=== PATIENT | female | born 1945 | race Caucasian/White ===

== ENCOUNTER 2023-08-04 14:30 | Inpatient (IN) | payer OTHER ==
[~2023-08-04] VITALS: Ht 154.9 cm; Wt 54.4 kg
[2023-08-04 14:44] VITALS: BP_SYST 156; PULSE 87; RESP 18; TEMP 99.5; O2SAT 98
[2023-08-04] MEDS ORDERED: METOCLOPRAMIDE HCL 10 MG/2 ML VIAL IVP ONE (15:00)
[2023-08-04] MEDS ORDERED: MECLIZINE HCL 25 MG TABLET (ANITVERT) PO ONE (15:00)
[2023-08-04 15:46] LABS: HEMATOCRIT 35.5 % (36-48); HEMOGLOBIN 11.7 g/dL (12.0-16.0); MEAN CORPUSCULAR HEMOGLOBIN 33 pg (27-31); MEAN CORPUSCULAR HGB CONC 33 % (32-36); MEAN CORPUSCULAR VOLUME 99 fL (79.0-98.0); PLATELET COUNT (AUTO) 167 K/uL (130-430); RED BLOOD CELL COUNT(AUTO) 3.57 MIL/uL (4.2-6.2)
[2023-08-04 15:55] LABS: PROTHROMBIN TIME 10.4 SECS (9.5-12.5)
[2023-08-04 16:08] LABS: ALANINE AMINOTRANSFERASE 15 U/L (12-78); ALBUMIN 3.1 g/dL (3.4-4.8); ANION GAP 8 (5-15); ASPARTATE AMINOTRANSFERASE 12 U/L (10-37); CALCIUM 7.9 mg/dL (8.4-11.0); CARBON DIOXIDE 31 mmol/L (23-29); CHLORIDE 103 mmol/L (98-107); CREATINE KINASE, TOTAL 46 U/L (26-192); CREATININE 0.65 mg/dL (0.55-1.30); GLUCOSE 121 mg/dL (74-106); SODIUM SERUM 142 mmol/L (136-145); THYROID STIMULATING HORMONE 2.24 uIu/mL (0.34-4.82); TOTAL BILIRUBIN 0.9 mg/dL (0.0-1.0); TOTAL PROTEIN, SERUM 5.8 g/dL (6.4-8.3); UREA NITROGEN, BLOOD 12 mg/dL (8-21)
[2023-08-04 16:12] LABS: POTASSIUM 2.8 mmol/L (3.5-5.1)
[2023-08-04 16:18] LABS: WHITE BLOOD COUNT (AUTO) 72.9 K/uL (4.8-10.8)
[2023-08-04 16:19] LABS: ACETONE, SERUM NEGATIVE (NEGATIVE)
[2023-08-04] MEDS ORDERED: cefTRIAXone 1 GM in D5W 50 ML IV ONE (16:30)
[2023-08-04] MEDS ORDERED: NACL 0.9% 1,000 ML IV ONE (16:30)
[2023-08-04] MEDS ORDERED: POTASSIUM CHLORIDE 20 MEQ/PKT PACKET PO ONE (16:45)
[2023-08-04 17:20] LABS: BAND % (MANUAL) 0 % (0-6); BASOPHILS % (MANUAL) 0 % (0-2); EOSINOPHILS % (MANUAL) 0 % (0-7); LYMPHOCYTES % (MANUAL) 86 % (20-46); MONOCYTES % (MANUAL) 0 % (0-11)
[2023-08-04 17:23] LABS: PLATELET ESTIMATE ADEQUATE (ADEQUATE)
[2023-08-04 17:25] LABS: OVALOCYTES FEW
[2023-08-04] MEDS ORDERED: cefTRIAXone 1 GM VIAL ONE (17:32)
[2023-08-04 21:59] VITALS: BP_SYST 124; PULSE 87; RESP 16; TEMP 97.9
[2023-08-04] MEDS ORDERED: ACETAMINOPHEN 325 MG TABLET PO PRN (23:15)
[2023-08-04] MEDS ORDERED: ONDANSETRON HCL 4 MG/2 ML VIAL IVP PRN (23:15)
[2023-08-04] MEDS ORDERED: HYDROcodone/ACETAMIN 10-325 MG TAB PO PRN (23:15)
[2023-08-04] MEDS ORDERED: HYDROcodone/ACETAMIN 5-325 MG TAB (NORCO/ VICODIN) PO PRN (23:15)
[2023-08-04] MEDS ORDERED: LORazepam 2 MG/ML VIAL IVP PRN (23:15)
[2023-08-04] MEDS ORDERED: NALOXONE HCL 0.4 MG/ML AMP (NARCAN) IVP PRN ×2 (23:15)
[2023-08-04 23:57] VITALS: O2SAT 98
[2023-08-05 00:38] VITALS: BP_SYST 147; PULSE 84; RESP 18; TEMP 99.1; O2SAT 98
[2023-08-05 04:57] LABS: HEMATOCRIT 30.7 % (36-48); HEMOGLOBIN 10.1 g/dL (12.0-16.0); LYMPHOCYTES # (AUTO) 58.5 K/uL (1.0-5.5); LYMPHOCYTES % (AUTO) 91.9 % (20.5-51.5); MEAN CORPUSCULAR HEMOGLOBIN 33 pg (27-31); MEAN CORPUSCULAR HGB CONC 33 % (32-36); MEAN CORPUSCULAR VOLUME 99 fL (79.0-98.0); MONOCYTES # (AUTO) 0.5 K/uL (0.0-1.0); MONOCYTES % (AUTO) 0.9 % (1.7-9.3); NEUTROPHILS # (AUTO) 4.6 K/uL (1.8-7.7); NEUTROPHILS % (AUTO) 7.2 % (40.0-70.0); PLATELET COUNT (AUTO) 146 K/uL (130-430); RED BLOOD CELL COUNT(AUTO) 3.09 MIL/uL (4.2-6.2); RED CELL DISTRIBUTION WIDTH 13.1 % (9.0-15.0)
[2023-08-05 05:14] LABS: CARBON DIOXIDE 29 mmol/L (23-29); UREA NITROGEN, BLOOD 8 mg/dL (8-21)
[2023-08-05] MEDS: NORMAL SALINE 5 ML DISP.SYRIN IVF SCH ×3 (05:29→20:58)
[2023-08-05 05:44] LABS: WHITE BLOOD COUNT (AUTO) 63.7 K/uL (4.8-10.8)
[2023-08-05 06:58] LABS: ANION GAP 7 (5-15); CALCIUM 7.5 mg/dL (8.4-11.0); CHLORIDE 105 mmol/L (98-107); CREATININE 0.57 mg/dL (0.55-1.30); GLUCOSE 96 mg/dL (74-106); POTASSIUM 3.3 mmol/L (3.5-5.1); SODIUM SERUM 141 mmol/L (136-145)
[2023-08-05 08:30] VITALS: BP_SYST 126; PULSE 96; RESP 18; TEMP 99.3; O2SAT 96
[2023-08-05] MEDS ORDERED: POTASSIUM CHLORIDE 20 MEQ TAB.PRT.SR PO ONE (11:15)
[2023-08-05 11:30] VITALS: BP_SYST 148; PULSE 89; RESP 18; TEMP 98.1; O2SAT 98
[2023-08-05] MEDS: MECLIZINE HCL 25 MG TABLET (ANITVERT) PO PRN ×2 (12:02→20:58)
[2023-08-05] MEDS: D5/0.45 NS 1,000 ML IV SCH ×2 (12:15→20:58)
[2023-08-05 14:02] VITALS: BP_SYST 110; PULSE 76; RESP 18; TEMP 98.2; O2SAT 99
[2023-08-05 17:15] VITALS: BP_SYST 158; PULSE 93; RESP 18; TEMP 98; O2SAT 96
[2023-08-05] MEDS ORDERED: LORazepam 1 MG TABLET PO PRN (18:00)
[2023-08-05 20:00] VITALS: BP_SYST 122; PULSE 93; RESP 20; TEMP 98.4; O2SAT 97
[2023-08-05] MEDS ORDERED: LORazepam 1 MG TABLET PO ONE (21:45)
[2023-08-06] VITALS (10 sets, daily range): BP systolic 116–148; PULSE 77–121; RESP 15–18; TEMP 97.6–99.5; O2SAT 96–100
[2023-08-06 05:14] LABS: BASOPHILS % (AUTO) 0.1 % (0.0-2.0); EOSINOPHILS % (AUTO) 0.1 % (0.0-4.0); HEMATOCRIT 29.1 % (36-48); HEMOGLOBIN 9.4 g/dL (12.0-16.0); LYMPHOCYTES # (AUTO) 55.2 K/uL (1.0-5.5); LYMPHOCYTES % (AUTO) 94.3 % (20.5-51.5); MEAN CORPUSCULAR HEMOGLOBIN 33 pg (27-31); MEAN CORPUSCULAR HGB CONC 32 % (32-36); MEAN CORPUSCULAR VOLUME 101 fL (79.0-98.0); MONOCYTES # (AUTO) 0.4 K/uL (0.0-1.0); MONOCYTES % (AUTO) 0.7 % (1.7-9.3); NEUTROPHILS # (AUTO) 2.8 K/uL (1.8-7.7); NEUTROPHILS % (AUTO) 4.8 % (40.0-70.0); PLATELET COUNT (AUTO) 136 K/uL (130-430); RED BLOOD CELL COUNT(AUTO) 2.89 MIL/uL (4.2-6.2); RED CELL DISTRIBUTION WIDTH 13.3 % (9.0-15.0); RETICULOCYTE COUNT 1.3 % (0.5-1.5)
[2023-08-06 05:21] LABS: ANION GAP 7 (5-15); CALCIUM 7.4 mg/dL (8.4-11.0); CARBON DIOXIDE 28 mmol/L (23-29); CHLORIDE 107 mmol/L (98-107); GLUCOSE 133 mg/dL (74-106); POTASSIUM 3.4 mmol/L (3.5-5.1); SODIUM SERUM 142 mmol/L (136-145); UREA NITROGEN, BLOOD 8 mg/dL (8-21)
[2023-08-06 05:26] LABS: TOTAL IRON BIND. CAPACITY 178 ug/dL (250-450)
[2023-08-06 06:55] LABS: WHITE BLOOD COUNT (AUTO) 58.5 K/uL (4.8-10.8)
[2023-08-06] MEDS: D5/0.45 NS 1,000 ML IV SCH ×2 (08:53→18:00)
[2023-08-06] MEDS: NORMAL SALINE 5 ML DISP.SYRIN IVF SCH ×2 (08:53→14:32)
[2023-08-06] MEDS ORDERED: MECL-292 PO (12:10)
[2023-08-06] MEDS ORDERED: ACT35 PO (12:10)
[2023-08-06] MEDS ORDERED: ALPR0.25 PO ×2 (12:13→12:14)
[2023-08-10] MEDS ORDERED: RISEDRONATE SODIUM 35 MG TABLET PO SCH (06:00)
== END 2023-08-06 18:30 | disposition home health service (06) | DRG 149 ==
LOC: SED 14:30 → SMU 16:44
PROVIDERS: ADMIT Preventive Medicine Preventive Medicine/Occupational Environmental Medicine; ATTEND Specialist
DX: H81.10 Benign paroxysmal vertigo, unspecified ear (principal); C91.10 Chronic lymphocytic leukemia of B-cell type not having achieved remission; R65.10 Systemic inflammatory response syndrome (SIRS) of non-infectious origin without acute organ dysfunction; F41.9 Anxiety disorder, unspecified; G90.8 Other disorders of autonomic nervous system; M54.12 Radiculopathy, cervical region; E87.6 Hypokalemia; M62.838 Other muscle spasm; D64.9 Anemia, unspecified
CPT/HCPCS: 36415; 70450-TC; 70551; 71045; 72072-TC; 76376; 80048; 80053; 82009; 82550; 82607; 82728; 82746; 83540; 83550; 83605; 84439; 84443; 84484; 85007; 85025; 85027; 85044; 85610-TC; 85730-TC; 87040; 93005; 96374; 97110-GP; 97116-GP; 97530-GP; 99285; J0696; J2765; J8597